=== PATIENT | male | born 1985 | race Caucasian/White ===

== ENCOUNTER 2021-01-22 11:52 | Inpatient (IN) ==
[2021-01-22 12:35] LABS: Appearance Urine Clear (Clear); Bilirubin Urine Negative (Negative); Blood Urine Negative (Negative); Color Urine Dark Yellow; Glucose Urine UA Negative (Negative); Ketones Urine Trace (Negative); Leukocyte Esterase Urine Negative (Negative); Nitrite Urine Negative (Negative); Protein Urine Negative (Negative); Urobilinogen Urine Negative (Negative); pH Urine 7.5 (4.5-7.5)
[2021-01-22 12:43] LABS: Basophils # (auto) 0.01 K/uL (0-0.2); Basophils % (auto) 0.2 %; Eosinophils # (auto) 0.05 K/uL (0-0.5); Eosinophils % (auto) 0.8 %; Hematocrit (blood only) 43.6 % (42-52); Hemoglobin 15.4 g/dL (14.0-18.0); Immature Granulocytes # (auto) 0.01 K/uL (0.00-0.02); Immature Granulocytes % (auto) 0.2 %; Lymphocytes # (auto) 1.36 K/uL (1.2-3.4); Lymphocytes % (auto) 22.7 %; Mean Corpuscular Hemoglobin 29.4 pg (25-34); Mean Corpuscular Hgb Conc 35.3 g/dL (32-36); Mean Corpuscular Volume 83.2 fL (80-100); Mean Platelet Volume 9.4 fL (7.4-10.4); Monocytes # (auto) 0.35 K/uL (0.11-0.59); Monocytes % (auto) 5.9 %; Neutrophils % (auto) 70.2 %; Platelet Count 321 K/uL (130-400); RDW Coefficient of Variation 12.5 % (11.5-14.5); RDW Standard Deviation 37.8 fL (36.4-46.3); Red Blood Count 5.24 M/uL (4.7-6.1); White Blood Count 5.98 K/uL (4.8-10.8)
[2021-01-22 13:04] LABS: Albumin Level 4.1 gm/dl (3.4-5.0); BUN Creatinine Ratio 5.5 (10-20); Calcium 9.2 mg/dl (8.5-10.1); Creatinine Clr Calc Pharmacy 126.2 ml/min; Est GFR (African American) 109.3 ml/min; Est GFR (Non-African American) 94.3 ml/min; Potassium 4.1 mmol/L (3.5-5.1)
[2021-01-22 13:14] LABS: Albumin Globulin Ratio 1.1 (0.9-2); Bilirubin,Total 0.4 mg/dl (0.2-1); Globulin 3.8 gm/dl (2.5-4.0); Thyroid Stimulating Hormone 0.845 uIu/ml (0.300-4.500); Total Protein 7.9 gm/dl (6.4-8.2)
[2021-01-22 13:23] LABS: Amphetamines+Metham, Urine Neg (Neg); Barbiturates, Urine Neg (Neg); Benzodiazepine, Urine Neg (Neg); Cocaine, Urine Neg (Neg); MDMA (Ecstacy), Urine Neg (Neg); Methadone, Urine Neg (Neg); Opiate, Urine Neg (Neg); Phencyclidine, Urine Neg (Neg)
[2021-01-22 13:41] LABS: Acetaminophen < 2 ug/ml (10-30); Salicylate < 1.7 mg/dl (2.8-20)
[2021-01-22] MEDS ORDERED: LORazepam 1 MG TAB PO STA ×3 (13:45→20:31)
[2021-01-22] MEDS: NICOTINE POLACRILEX 2 MG GUM MT PRN (13:57)
--- NOTE | 2021-01-22 17:39 | Emergency Department Note ---
History of Present Illness General Chief complaint: Mental Health Evaluation Stated complaint: MENTAL HEALTH EVAL Time Seen by Provider: 01/22/21 11:59 History of Present Illness Provider complaint: Mental health evaluation Maximum Pain Intensity: 3 35-year-old male presents emergency department for mental health evaluation. Patient presents from [facility]. Patient states he has been feeling very nervous, anxious and been having erratic thoughts. He reports having suicidal ideation with plans on trying to hang himself. Patient states he has tried to hang himself in the past. Home Medications Medication Instructions Recorded Confirmed Type Thorazine 50 mg PO HS 01/22/21 01/22/21 History Zoloft 50 mg PO DAILY 01/22/21 01/22/21 History chlorpromazine 25 mg tablet PO QAM 01/22/21 History guanfacine 1 mg tablet 0.5 mg PO BID 01/22/21 01/22/21 History Allergies Allergy/AdvReac Type Severity Reaction Status Date / Time No Known Allergies Allergy Unverified 01/22/21 13:27 Past Med/Surg History Medical History (Updated 01/22/21 @ 20:58 by Rolf Garcia) Depression with suicidal ideation No pertinent family history Surgical History (Updated 01/22/21 @ 17:36 by Rolf Garcia) No pertinent past surgical history Social History (Updated 01/22/21 @ 17:36 by Rolf Garcia) Smoking Status: Current every day smoker Tobacco Type: Cigarettes Hx Alcohol Use: Yes Hx Substance Use: Yes Prescribed Medications: Opiates Preferred Language: Amharic Feels Safe at Home: Yes Review of Systems A total of 10 systems reviewed and were otherwise negative Physical Exam Vital Signs Vital Signs - 24 hr 01/22/21 11:56 01/22/21 15:22 01/22/21 19:15 Temperature 36.5 C 37.1 C Temperature Source Temporal Artery Scan Oral Pulse Rate 69 Pulse Rate [Finger] 77 54 L Pulse Rhythm [Finger] Regular Pulse Strength [Finger] Normal Respiratory Rate 18 16 18 Respiratory Effort / Characteristics Non-Labored Spontaneous Non-Labored Non-Labored Respiratory Depth Normal Normal Normal Respiratory Pattern Regular Regular Blood Pressure 126/78 Blood Pressure [Right Arm] 126/75 131/74 Blood Pressure Mean 94 Blood Pressure Mean [Right Arm] 92 93 Blood Pressure Position Sitting Blood Pressure Position [Right Arm] Lying Lying Pulse Oximetry 98 98 98 Oxygen Delivery Method Room Air Room Air Room Air Sepsis Recent Fever Within 48 Hours No Sepsis New/Unexplained Change in Mental Status N/A Sepsis Action Taken by Nursing No Action Required Physical Exam GENERAL: He is oriented to person, place, and time. He appears well-developed and well-nourished. He does not appear distressed. HENT: Exam performed. - Head: Normocephalic and atraumatic. - Right Ear: External ear normal. No mastoid tenderness. - Left Ear: External ear normal. No mastoid tenderness. - Mouth/Throat: The oropharynx is clear and moist. No trismus in the jaw. No dental abscesses or uvula swelling. No oropharyngeal exudate or tonsillar abscesses. EYES: Conjunctivae and EOM are normal. Pupils are equal, round, and reactive to light. Right eye exhibits no discharge. Left eye exhibits no discharge. No scleral icterus. NECK: Normal range of motion. Neck supple. No JVD present. No spinous process tenderness present. No carotid bruit present. No rigidity. No tracheal deviation and normal range of motion present. No Brudzinski's sign and no Kernig's sign noted. CV: Normal rate, regular rhythm, normal heart sounds and intact distal pulses. There is no peripheral edema. Palpable radial pulses bue. PULM/CHEST: Effort normal and breath sounds normal. No respiratory distress. No stridor. He has no wheezes. He has no rales. - Chest Wall: He exhibits no tenderness. ABD: The abdomen is soft. Bowel sounds are normal. He has no distension. No mass is present. There is no tenderness. There is no rebound, no guarding, no Ramirez's sign and no tenderness at McBurney's point. Rovsig negative. MUSC/SKEL: Normal range of motion. There is no peripheral edema, tenderness or deformity. LYMPH: No cervical adenopathy. NEURO: He is alert and oriented to person, place, and time. He has normal strength. No cranial nerve deficit or sensory deficit. Coordination and gait normal. GCS eye subscore is 4. GCS verbal subscore is 5. GCS motor subscore is 6. Cerebellar tests wnl. SKIN: Skin is warm and dry. He is not diaphoretic. PSYCH: Patient reports suicidal ideation. Course Course 1159: The patient was evaluated in room A7. A complete history and physical exam was performed 1300: Patient medically cleared. Awaiting psychiatric evaluation and placement. Patient placed in observation at this time 2056: Awaiting placement. Patient signed out to Dr. Catherine Administered Medications Nicotine Polacrilex (Nicotine Polacrilex 2 Mg Gum) 1 piece MT PRN PRN PRN Reason: Agitation Stop: 02/21/21 13:28 Last Admin: 01/22/21 13:57 Dose: 1 piece Documented by: [id number] Discontinued Medications Chlorpromazine HCl (Chlorpromazine Hcl 25 Mg Tab) 50 mg PO NOW ONE Stop: 01/22/21 19:48 Last Admin: 01/22/21 20:08 Dose: 50 mg Documented by: [id number] Guanfacine HCl (Guanfacine Hcl 1 Mg Tab) 0.5 mg PO NOW STA Stop: 01/22/21 19:48 Last Admin: 01/22/21 20:08 Dose: 0.5 mg Documented by: [id number] Lorazepam (Lorazepam 1 Mg Tab) 1 mg PO NOW STA Stop: 01/22/21 13:46 Last Admin: 01/22/21 13:57 Dose: 1 mg Documented by: [id number] Lorazepam (Lorazepam 1 Mg Tab) 1 mg PO NOW STA Stop: 01/22/21 17:05 Last Admin: 01/22/21 17:33 Dose: 1 mg Documented by: [id number] Medical Decision Making Laboratory Data Result diagrams: 01/22/21 12:22 01/22/21 12:22 Lab Results 01/22/21 01/22/21 01/22/21 Range/Units 12:04 12:04 12:17 WBC (4.8-10.8) K/uL RBC (4.7-6.1) M/uL Hgb (14.0-18.0) g/dL Hct (42-52) % MCV (80-100) fL MCH (25-34) pg MCHC (32-36) g/dL RDW Std Deviation (36.4-46.3) fL RDW Coeff of Rima (11.5-14.5) % Plt Count (130-400) K/uL MPV (7.4-10.4) fL Immature Gran % (Auto) % Neut % (Auto) % Lymph % (Auto) % Potter % (Auto) % Eos % (Auto) % Baso % (Auto) % Neut # (Auto) (1.4-6.5) K/uL Lymph # (Auto) (1.2-3.4) K/uL Potter # (Auto) (0.11-0.59) K/uL Eos # (Auto) (0-0.5) K/uL Baso # (Auto) (0-0.2) K/uL Immature Gran # (Auto) (0.00-0.02) K/uL Sodium (136-145) mmol/L Potassium (3.5-5.1) mmol/L Chloride (98-107) mmol/L Carbon Dioxide (21-32) mmol/L Anion Gap (3-11) BUN (7-18) mg/dl Creatinine (0.6-1.4) mg/dl Est Cr Clr Drug Dosing ml/min Est GFR ( Amer) ml/min Est GFR (Non-Af Amer) ml/min BUN/Creatinine Ratio (10-20) Glucose (70-99) mg/dl Calcium (8.5-10.1) mg/dl Total Bilirubin (0.2-1) mg/dl AST (15-37) U/L ALT (12-78) U/L Alkaline Phosphatase (45-117) U/L Total Protein (6.4-8.2) gm/dl Albumin (3.4-5.0) gm/dl Globulin (2.5-4.0) gm/dl Albumin/Globulin Ratio (0.9-2) TSH (0.300-4.500) uIu/ml Urine Color Dark Yellow Urine Appearance Clear (Clear) Urine pH 7.5 (4.5-7.5) Ur Specific [place] 1.020 (1.000-1.030) Urine Protein Negative (Negative) Urine Glucose (UA) Negative (Negative) Urine Ketones Trace H (Negative) Urine Blood Negative (Negative) Urine Nitrite Negative (Negative) Urine Bilirubin Negative (Negative) Urine Urobilinogen Negative (Negative) Ur Leukocyte Esterase Negative (Negative) Salicylates (2.8-20) mg/dl Urine Opiates Screen Neg (Neg) Ur Methadone, Qual Neg (Neg) Acetaminophen (10-30) ug/ml Urine Barbiturates Neg (Neg) Ur Phencyclidine (PCP) Neg (Neg) U Amphetamin/Meth Scrn Neg (Neg) MDMA (Ecstasy) Screen Neg (Neg) U Benzodiazepines Scrn Neg (Neg) Ur Cocaine Metabolite Neg (Neg) U Marijuana (THC) Screen Neg (Neg) Ethyl Alcohol mg/dL (0-3) mg/dl COVID-19 Eval [email or web address] SARS-CoV-2, RNA, NAAT (NEGATIVE) 01/22/21 01/22/21 01/22/21 Range/Units 12:17 12:22 12:22 WBC 5.98 (4.8-10.8) K/uL RBC 5.24 (4.7-6.1) M/uL Hgb 15.4 (14.0-18.0) g/dL Hct 43.6 (42-52) % MCV 83.2 (80-100) fL MCH 29.4 (25-34) pg MCHC 35.3 (32-36) g/dL RDW Std Deviation 37.8 (36.4-46.3) fL RDW Coeff of Rima 12.5 (11.5-14.5) % Plt Count 321 (130-400) K/uL MPV 9.4 (7.4-10.4) fL Immature Gran % (Auto) 0.2 % Neut % (Auto) 70.2 % Lymph % (Auto) 22.7 % Potter % (Auto) 5.9 % Eos % (Auto) 0.8 % Baso % (Auto) 0.2 % Neut # (Auto) 4.20 (1.4-6.5) K/uL Lymph # (Auto) 1.36 (1.2-3.4) K/uL Potter # (Auto) 0.35 (0.11-0.59) K/uL Eos # (Auto) 0.05 (0-0.5) K/uL Baso # (Auto) 0.01 (0-0.2) K/uL Immature Gran # (Auto) 0.01 (0.00-0.02) K/uL Sodium 140 (136-145) mmol/L Potassium 4.1 (3.5-5.1) mmol/L Chloride 108 H (98-107) mmol/L Carbon Dioxide 26 (21-32) mmol/L Anion Gap 6.0 (3-11) BUN 6 L (7-18) mg/dl Creatinine 1.03 (0.6-1.4) mg/dl Est Cr Clr Drug Dosing 126.2 ml/min Est GFR ( Amer) 109.3 ml/min Est GFR (Non-Af Amer) 94.3 ml/min BUN/Creatinine Ratio 5.5 L (10-20) Glucose 100 H (70-99) mg/dl Calcium 9.2 (8.5-10.1) mg/dl Total Bilirubin 0.4 (0.2-1) mg/dl AST 14 L (15-37) U/L ALT 25 (12-78) U/L Alkaline Phosphatase 78 (45-117) U/L Total Protein 7.9 (6.4-8.2) gm/dl Albumin 4.1 (3.4-5.0) gm/dl Globulin 3.8 (2.5-4.0) gm/dl Albumin/Globulin Ratio 1.1 (0.9-2) TSH 0.845 (0.300-4.500) uIu/ml Urine Color Urine Appearance (Clear) Urine pH (4.5-7.5) Ur Specific [place] (1.000-1.030) Urine Protein (Negative) Urine Glucose (UA) (Negative) Urine Ketones (Negative) Urine Blood (Negative) Urine Nitrite (Negative) Urine Bilirubin (Negative) Urine Urobilinogen (Negative) Ur Leukocyte Esterase (Negative) Salicylates (2.8-20) mg/dl Urine Opiates Screen (Neg) Ur Methadone, Qual (Neg) Acetaminophen (10-30) ug/ml Urine Barbiturates (Neg) Ur Phencyclidine (PCP) (Neg) U Amphetamin/Meth Scrn (Neg) MDMA (Ecstasy) Screen (Neg) U Benzodiazepines Scrn (Neg) Ur Cocaine Metabolite (Neg) U Marijuana (THC) Screen (Neg) Ethyl Alcohol mg/dL (0-3) mg/dl COVID-19 Eval Order SARS-CoV-2, RNA, NAAT NEGATIVE (NEGATIVE) 01/22/21 01/22/21 Range/Units 12:22 12:22 WBC (4.8-10.8) K/uL RBC (4.7-6.1) M/uL Hgb (14.0-18.0) g/dL Hct (42-52) % MCV (80-100) fL MCH (25-34) pg MCHC (32-36) g/dL RDW Std Deviation (36.4-46.3) fL RDW Coeff of Rima (11.5-14.5) % Plt Count (130-400) K/uL MPV (7.4-10.4) fL Immature Gran % (Auto) % Neut % (Auto) % Lymph % (Auto) % Potter % (Auto) % Eos % (Auto) % Baso % (Auto) % Neut # (Auto) (1.4-6.5) K/uL Lymph # (Auto) (1.2-3.4) K/uL Potter # (Auto) (0.11-0.59) K/uL Eos # (Auto) (0-0.5) K/uL Baso # (Auto) (0-0.2) K/uL Immature Gran # (Auto) (0.00-0.02) K/uL Sodium (136-145) mmol/L Potassium (3.5-5.1) mmol/L Chloride (98-107) mmol/L Carbon Dioxide (21-32) mmol/L Anion Gap (3-11) BUN (7-18) mg/dl Creatinine (0.6-1.4) mg/dl Est Cr Clr Drug Dosing ml/min Est GFR ( Amer) ml/min Est GFR (Non-Af Amer) ml/min BUN/Creatinine Ratio (10-20) Glucose (70-99) mg/dl Calcium (8.5-10.1) mg/dl Total Bilirubin (0.2-1) mg/dl AST (15-37) U/L ALT (12-78) U/L Alkaline Phosphatase (45-117) U/L Total Protein (6.4-8.2) gm/dl Albumin (3.4-5.0) gm/dl Globulin (2.5-4.0) gm/dl Albumin/Globulin Ratio (0.9-2) TSH (0.300-4.500) uIu/ml Urine Color Urine Appearance (Clear) Urine pH (4.5-7.5) Ur Specific [place] (1.000-1.030) Urine Protein (Negative) Urine Glucose (UA) (Negative) Urine Ketones (Negative) Urine Blood (Negative) Urine Nitrite (Negative) Urine Bilirubin (Negative) Urine Urobilinogen (Negative) Ur Leukocyte Esterase (Negative) Salicylates < 1.7 L (2.8-20) mg/dl Urine Opiates Screen (Neg) Ur Methadone, Qual (Neg) Acetaminophen < 2 L (10-30) ug/ml Urine Barbiturates (Neg) Ur Phencyclidine (PCP) (Neg) U Amphetamin/Meth Scrn (Neg) MDMA (Ecstasy) Screen (Neg) U Benzodiazepines Scrn (Neg) Ur Cocaine Metabolite (Neg) U Marijuana (THC) Screen (Neg) Ethyl Alcohol mg/dL < 3.0 (0-3) mg/dl COVID-19 Eval Order SARS-CoV-2, RNA, NAAT (NEGATIVE) MDM Narrative Observation note Indication: Psych eval/placement Patient, with depression, opiate abuse, alcohol abuse was first seen at 1159 hrs and the observation time began at 1300 hrs and was necessary in order to have psych evaluation completed . Impression & Plan Depression with suicidal ideation Discharge Plan Visit Data Chief Complaint: Mental Health Evaluation Stated Complaint: MENTAL HEALTH EVAL ED Provider: Rolf Garcia Discharge Problem: Depression with suicidal ideation Patient Disposition: Still a Patient Forms Stand Alone Forms: My [facility], Suicide Prevention Resources Prescriptions Prescriptions: No Action chlorpromazine [Thorazine] 25 mg Tablet PO QAM RF: 0 Thorazine 50 mg tablet 50 mg PO HS RF: 0 Zoloft 50 mg tablet 50 mg PO DAILY RF: 0 guanfacine 1 mg Tablet 0.5 mg PO BID RF: 0 Referrals Referrals: PCP,NO [Primary Care Provider] -
[2021-01-22] MEDS ORDERED: guanFACINE HCL 1 MG TAB PO STA (19:47)
[2021-01-22] MEDS ORDERED: chlorproMAZINE HCL 25 MG TAB PO ONE (19:47)
[2021-01-22] MEDS ORDERED: diphenhydrAMINE Capsule 25 MG CAP PO ONE (20:31)
--- NOTE | 2021-01-23 03:02 | Emergency Department Note ---
ED Visit Note This case was signed out to me at change of shift awaiting bed placement. The bed search has been suspended. They will reevaluate for placement in [place] in the morning. Daily medications will be ordered. The patient requested something for anxiety as he did not sleep much overnight. He was given 1 mg of sublingual Ativan. The case will be signed out to Dr. Bentley .
[2021-01-23] MEDS ORDERED: SERTRALINE HCL 50 MG TABLET PO ONE (06:42)
[2021-01-23] MEDS ORDERED: chlorproMAZINE HCL 25 MG TAB PO ONE (06:48)
[2021-01-23] MEDS ORDERED: LORazepam 1 MG TAB SL STA (07:16)
[2021-01-23] MEDS ORDERED: guanFACINE HCL 1 MG TAB PO SCH (09:00)
[2021-01-23] MEDS ORDERED: ALPRAZolam 0.5 MG TABLET PO STA (11:17)
[2021-01-23] MEDS: NICOTINE POLACRILEX 2 MG GUM MT PRN ×2 (11:50→16:21)
[2021-01-23] MEDS ORDERED: ACETAMINOPHEN 325 MG TAB PO PRN (13:12)
[2021-01-23] MEDS ORDERED: hydrOXYzine HCl 25 MG TAB PO PRN (13:12)
[2021-01-23] MEDS ORDERED: SODIUM CHLORIDE 0.65% NA SOLN 45 ML (OCEAN) PRN (13:12)
[2021-01-23] MEDS ORDERED: ALUMINUM/MAGNESIUM SUSP 30 ML UDC PO PRN (13:12)
[2021-01-23] MEDS ORDERED: BISMUTH SUBSALICYLATE LIQD 236 ML PO PRN (13:12)
[2021-01-23] MEDS ORDERED: MAGNESIUM HYDROXIDE SUSP 30 ML UDC PO PRN (13:12)
--- NOTE | 2021-01-23 14:03 | Emergency Department Note ---
ED Visit Note I received this patient at change of shift signout from Dr. Angel. Please see her note for overnight care. The patient presented to the emergency department from [facility]. The patient was there for many weeks. He was doing well from a abuse standpoint however he started having depression with suicidal ideation. He was also very anxious. He presented to the emergency department for an evaluation. He was medically cleared. I did review the patient's previous medical clearance. He was felt to be a good candidate for inpatient management but the patient requested to be evaluated for transfer to a facility closer to his home in [facility]. We are unable to place him. Ultimately he was evaluated by the delegate from [facility]. He was felt to be a good candidate for inpatient management on [facility]. I did sign the 201. The patient was given Xanax in the emergency department. He was feeling somewhat improved after this modality. .
[2021-01-23] MEDS: hydrOXYzine HCl 25 MG TAB PO PRN ×2 (14:44→19:23)
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
[2021-01-23] MEDS: NICOTINE 21 MG/24 HR TDSY TD SCH (16:20)
[2021-01-23] MEDS ORDERED: chlorproMAZINE HCL 25 MG TAB PO PRN (16:46)
[2021-01-24] MEDS: hydrOXYzine HCl 25 MG TAB PO PRN ×2 (08:22→16:05)
[2021-01-24] MEDS: NICOTINE 21 MG/24 HR TDSY TD SCH (08:24)
[2021-01-24 08:42] LABS: Glucose Fasting 100 mg/dl (70-99)
[2021-01-24 08:57] LABS: Chol HDL Ratio 5; Cholesterol 156 mg/dl (0-200); HDL Cholesterol 31 mg/dl; LDL Cholesterol Calculated 66 mg/dl; Triglycerides 293 mg/dl (0-150); VLDL Cholesterol 59 mg/dl
[2021-01-24] MEDS ORDERED: chlorproMAZINE HCL 25 MG TAB PO SCH (09:00)
[2021-01-24] MEDS ORDERED: chlorproMAZINE HCL 25 MG TAB PO PRN (09:53)
[2021-01-24] MEDS ORDERED: SERTRALINE HCL 50 MG TABLET PO SCH (10:00)
--- NOTE | 2021-01-24 12:52 | Psychiatric Progress Note ---
Date of Service January 24, 2021 Impression / Recommendations Impression 35 yo man with history of opioid use disorder, OCD, ADHD and Tourette syndrome admitted after developing SI and worsening mood symptoms when undergoing a suboxone taper at a local residential substance use treatment facility. Diagnostically consistent with MDD versus depression in the context of opioid withdrawal. SI has resolved and he is not experiencing any urges for self-harm. Discussed treatment options and he is interested in medications to help with OCD, ADHD and tics. Discussed medication options at length. No evidence of past marybeth though complicated by substance use history but he recalls good response to sertraline trial previously though stopped taking it before he was able to experience any potential benefits for OCD. He would like to restart sertraline for OCD and mood as well as guanfacine for ADHD and tics. Discussed risks of thorazine use, including EPS, TD, akathisia and metabolic risks particularly given his elevated triglycerides and glucose. He feels that given withdrawal symptoms this is very helpful and would like to remain on it in the short-term even knowing the medication risks. Given the challenges of his acute withdrawal period from opioids, I feel that short-term limited use of thorazine (max daily dose 200mg and no more than 4 weeks duration) is acceptable as he develops and practices new coping skills for managing his mood symptoms without substances. Plan from Dr. Mauricio reviewed below and in italics. (1) Depression with suicidal ideation: (2) Obsessive compulsive disorder: (3) Opiate dependence: (4) ADHD, predominantly hyperactive-impulsive subtype: (5) Tourettes disease: 01/24/2021: Today showing improvement in mood with no SI but continues to experience OCD and ADHD symptoms and anxiety he attributes to completing his suboxone taper. Starting sertraline 50mg qd for OCD and anxiety and guanfacine ER 1 mg qd for ADHD, tics and off-label benefits for opioid withdrawal symptoms and anxiety. Continuing thorazine for help with anxiety and agitation with thorazine 50mg BID prn for anxiety and 100 mg daily prn for agitation. Continues to have atarax available for anxiety as well. 01/23/21: The patient was admitted to the [facility] ([facility]) on q15 min checks (behavioral with suicide precautions) for safety. The patient will participate in group, recreational, and milieu therapies and will be offered additional individual and family sessions as clinically appropriate. Risks/benefits/alternatives were reviewed re: antipsychotics for mood and/or psychosis. Discussion included but was not limited to metabolic side effects, risks of TD and suicidal thoughts. There was no EPS or dyskinetic movements at baseline. Fasting glucose and lipid panel ordered for baseline monitoring. Reviewed that thorazine is likely not best longer term agent but will increase as it is providing some symptomatic relief. Zoloft was discontinued prior to coming to ED so will not be continued here. Guanfacine doses were missed/refused as a prn earlier so will d/c, doubt rebound hypertension will be an issue with thorazine rx, low dose, and brief course of treatment. Reviewed that Risperdal and Haldol are more classic antipsychotics for Tourette's and his main concern right now is anxiety. Reviewed that controlled substances will not be prescribed on the inpatient unit and goal is acute stabilization of SI to return to [facility] rehab. Brief intervention was offered and accepted around his opiate dependence. Intervention was greater than 5 min in length and included assessing motivation to quit, importance of abstaining from a mood perspective, and to set a specific goal for this hospitalization. matrix worker will also assist in anticipating barriers to sobriety and in problem-solving for solutions to those problems while arranging for return to rehab when more stable.The patient is in action stage with regards to transtheoretical model of change. The patient is advised to abstain from opiates due to depressant effects and risk of interaction with prescription medications (as well as ). The patient agreed to return to rehab when stable and will be provided with recovery materials to continue to educate self on how to cope with their condition without using. Inventory Assets Strengths: tracking his own system, wants to get better for children Needs: complete rehab, vocational training Risk Factors Assessment Male: Yes : Yes Do You Have Access To A Gun?: No Health Problems: No Mental Health Diagnoses: Yes Substance Use Disorders: Yes Previous Attempt: No Previous Psychiatric Hospitalization: No Protective Factors Assessment : No Responsible for Young Children: Yes Employed: No Supportive Family: No Interval History Identifying Information 35 yo man with history of opioid use disorder, OCD, ADHD and Tourette syndrome admitted after developing SI and worsening mood symptoms when undergoing a suboxone taper at a local residential substance use treatment facility. Chief Complaint "I have a lot of thoughts going through my mind". Review of Systems Sleep Information Total Hours of Sleep: 7 Meal Information Percent Meal Consumed - Breakfast: 100 Percent Meal Consumed - Dinner: 100 Subjective Subjective Chart and events of last 24 hours reviewed and discussed with multidisciplinary treatment team including nursing and social work. No acute events reported overnight. Slept well. Eating well. Attending groups. Adherent with medications. Today Richard reports ongoing lifelong symptoms of ADHD and OCD but improvement in depression and no current SI. Described how challenging the suboxone taper was for him and that since stopping suboxone he is experiencing more emotions such as tearfulness at times. Discussed strategies he uses to cope with this. He is most bothered by constant OCD thoughts and how ADHD impacts his focus. He notes that his OCD makes it hard for him to not second guess medication options or question his progress and improvement. Spent more than 40 minutes in the care and coordination of this patient of which greater than 50% was dedicated to counseling and coordination of care. Physical Exam Psychiatric Orientation: alert and oriented x 3 Apperance: appropriately dressed and appropriately groomed Eye Contact: good eye contact Motor Behavior: steady gait and station and no abnormal motor movements Speech: normal rate/rhythm/volume of speech Affect: euthymic affect Mood: + anxious mood Thought Process: goal directed thought process and linear/logical thought process Thought Content: + obsessions and reality based without delusions Suicidal Thoughts: denies suicidal thoughts Homicidal Thoughts: denies homicidal thoughts Hallucinations: no auditory hallucinations and no visual hallucinations Cognition: recent memory grossly intact and remote memory grossly intact Estimated Intelligence: consistent with education level Insight: + fair insight Judgement: + fair judgement Vital Signs (Past 24 Hours) Last Vital Signs Temp 36.5 C 01/24/21 06:00 Pulse 92 H 01/24/21 06:50 Resp 16 01/24/21 06:00 BP 113/75 01/24/21 06:50 Pulse Ox 98 01/23/21 07:01 Results & Data ([facility]) Laboratory Results Laboratory Results - last 24 hr 01/24/21 07:58 Fasting Glucose 100 H Triglycerides 293 H Cholesterol 156 LDL Cholesterol, Calc 66 VLDL Cholesterol, Calc 59 HDL Cholesterol 31 Cholesterol/HDL Ratio 5 Current Inpatient Medications Current Inpatient Medications: Current Inpatient Medications Acetaminophen (Acetaminophen 325 Mg Tab) 650 mg PO Q4H PRN PRN Reason: Headache or Minor Fever Stop: 02/22/21 13:11 Al Hydrox/Mg Hydrox/Simethicone (Aluminum/Magnesium Susp 30 Ml Udc) 30 ml PO Q4H PRN PRN Reason: GI Upset Stop: 02/22/21 13:11 Bismuth Subsalicylate (Bismuth Subsalicylate Liqd 236 Ml) 15 ml PO PRN PRN PRN Reason: Loose Stool Stop: 02/22/21 13:11 Chlorpromazine HCl (Chlorpromazine Hcl 25 Mg Tab) 50 mg PO BID PRN PRN Reason: Anxiety/Agitation Stop: 02/23/21 09:52 Last Admin: 01/24/21 11:40 Dose: 50 mg Documented by: Chlorpromazine HCl (Chlorpromazine Hcl 100 Mg Tab) 100 mg PO DAILY PRN PRN Reason: Agitation Stop: 02/23/21 12:26 Guanfacine HCl (Guanfacine Hcl 1 Mg Ertab) 1 mg PO DAILY [facility] Stop: 02/23/21 09:59 Last Admin: 01/24/21 10:40 Dose: 1 mg Documented by: Hydroxyzine HCl (Hydroxyzine Hcl 25 Mg Tab) 50 mg PO HSZ PRN PRN Reason: Insomnia Stop: 02/22/21 13:11 Hydroxyzine HCl (Hydroxyzine Hcl 25 Mg Tab) 25 mg PO Q4H PRN PRN Reason: Anxiety Stop: 02/22/21 13:11 Last Admin: 01/24/21 08:22 Dose: 25 mg Documented by: Magnesium Hydroxide (Magnesium Hydroxide Susp 30 Ml Udc) 30 ml PO DAILY PRN PRN Reason: Constipation Stop: 02/22/21 13:11 Miscellaneous (Remove Nicoderm Patch) 1 ea N/A DAILY@[id number] [facility] Stop: 02/23/21 08:58 Last Admin: 01/24/21 08:24 Dose: 1 ea Documented by: Nicotine (Nicotine 21 Mg/24 Hr Tdsy) 21 mg TD QAM [facility] Stop: 02/22/21 13:14 Last Admin: 01/24/21 08:24 Dose: 21 mg Documented by: Nicotine Polacrilex (Nicotine Polacrilex 2 Mg Gum) 1 piece MT PRN PRN PRN Reason: Nicotine Withdrawal Stop: 02/22/21 13:14 Last Admin: 01/23/21 16:21 Dose: 1 piece Documented by: Sertraline HCl (Sertraline Hcl 50 Mg Tablet) 50 mg PO QAM [facility] Stop: 02/23/21 09:59 Last Admin: 01/24/21 10:39 Dose: 50 mg Documented by: Sodium Chloride (Sodium Chloride 0.65% Na Soln 45 Ml ([place])) 1 - 2 sprays NA PRN PRN PRN Reason: Nasal Dryness/Congestion Stop: 02/22/21 13:11 Post Discharge Appointments Contact Information Discharge Discharge Address: [address] [place] [address], [place] [phone]
[2021-01-24] MEDS: NICOTINE POLACRILEX 2 MG GUM MT PRN (16:04)
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
== END 2021-01-24 19:13 | disposition alcohol treatment (31) | DRG 882 ==
LOC: ED 11:52 → 3S 01-23 13:00
DX: Z79.899 Other long term (current) drug therapy; F90.1 Attention-deficit hyperactivity disorder, predominantly hyperactive type; F43.23 Adjustment disorder with mixed anxiety and depressed mood; F17.210 Nicotine dependence, cigarettes, uncomplicated; R45.851 Suicidal ideations; F95.2 Tourette's disorder; F11.20 Opioid dependence, uncomplicated; F42.9 Obsessive-compulsive disorder, unspecified; Z20.822 Contact with and (suspected) exposure to COVID-19; Z91.51 Personal history of suicidal behavior; Z91.52 Personal history of nonsuicidal self-harm